=== PATIENT | male | born 1975 | race Caucasian/White ===

== ENCOUNTER 2018-01-30 12:14 | Outpatient (CLI) | payer OTHER ==
--- NOTE | 2018-01-30 13:31 | RAD ---
LUMBAR SPINE THREE VIEWS: History: Disability evaluation. FINDINGS: Lumbar vertebrae maintain normal height and alignment. There is mild loss of disc space at L5-S1. The other disc spaces are normally maintained. Very mild degenerative osteophytes. No evidence of spond ylolisthesis. IMPRESSION: Mild loss of disc space at L5-S1. Mild degenerative spurring from the lumbar vertebra. POS: [facility]
== END 2018-01-30 12:15 | disposition home or self-care (01) ==
LOC: NAV RAD 12:14
PROVIDERS: ATTEND Family Medicine
DX: M54.9 Dorsalgia, unspecified (principal); M51.86 Other intervertebral disc disorders, lumbar region; M25.78 Osteophyte, vertebrae
CPT/HCPCS: 72100